=== PATIENT | female | born 1965 | race Caucasian/White ===

== ENCOUNTER 2020-07-24 14:17 | Emergency (ER) | payer OTHER ==
[~2020-07-24] VITALS: Ht 165.1 cm; Wt 145.3 kg
[2020-07-24 14:30] VITALS: BP 147/84
--- NOTE | 2020-07-24 15:02 | RAD ---
EXAM: Chest, single view. HISTORY: Hypertension. COMPARISON: None. FINDINGS: A frontal view of the chest is obtained. There is elevation of the right hemidiaphragm. The re is suspected bilateral infrahilar atelectasis. No consolidation, pleural effusion or pneumothorax is seen. The heart is normal in size for portable technique. IMPRESSION: No acute pulmonary finding. Electronically signed by: Bere Lacey MD (07/24/2020 2:59 PM) [facility]
--- NOTE | 2020-07-24 15:25 | PHYS DOC ---
General Adult EDM: Chief Complaint: HYPERTENSION HPI: HPI: 55 yo F PMH fibromyalgia, cluster headaches, chronic fatigue syndrome and obesity (s/p gastric bypass in 2006), presents to the ED concern for her blood pressure after she checked it 5 times today and each time had a different reading, stating "it's all over the place, I'm freaking out." Lowest blood pressure was 135/75 and highest blood pressure was 199/95. Patient reports she called Charlene Pinto's nurse on Saturday (3 days ago), and she was referred to come to the emergency department for evaluation but she declined due to anxiety over Covid. Patient also with multiple other complaints. States she feels like the "blueberry girl in the [employer] movie,", that she is terribly "bloated everywhere, even my bones," but that this has been a chronic thing for years. Her normal weight is 317 pounds (she's 319 lbs today). Reports she googled her blood pressure medicines and believes her chlorthalidone worsens her bloating. Reports her blood pressure usually runs in the 130s over 70s. States her blood pressure medicines were changed on July 13. States she is not taking chlorthalidone 50 mg, Norvasc 10 mg and lisinopril 40 mg. Before that was on verapamil extended release and hydrochlorothiazide and lisinopril combination. Patient with no history of prior stroke or CAD. Patient with no active chest pain, shortness of breath, confusion or neurologic deficits. Review of Systems: Review of Systems: Constitutional: Denies fever or chills Eyes: Denies change in visual acuity HENT: Denies nasal congestion or sore throat Respiratory: Denies cough or shortness of breath Cardiovascular: Denies chest pain or edema GI: Denies abdominal pain, nausea, vomiting, bloody stools or diarrhea : Denies dysuria. hematuria or anuria Musculoskeletal: Denies back pain or joint pain Integument: Denies rash or crepitus Neurologic: Denies headache, focal weakness or sensory changes Endocrine: Denies polyuria or polydipsia Lymphatic: Denies swollen glands Psychiatric: Denies depression, SI or HI Allergies: Allergies: Allergies Coded Allergies Type Severity Reaction Last Updated Verified levofloxacin Allergy Unknown 07/24/20 Yes morphine Allergy Unknown 07/24/20 Yes Physical Exam: PE: Constitutional: Well developed, well nourished, no acute distress, non-toxic appearance. HENT: Normocephalic, atraumatic, Eyes: EOMI, conjunctiva normal, no discharge. Neck: Normal range of motion, supple, Cardiovascular: S1/2 present, regular rhythm Lungs & Thorax: Speaking in full sentences, bilateral equal chest rise, no tachypnea or increased work of breathing Abdomen: soft, no tenderness, Skin: Warm, dry, no erythema, no rash. [] Back: No tenderness, no CVA tenderness. [] Extremities: No tenderness, no cyanosis, no edema Neurologic: Alert and oriented X 3, normal motor function, normal sensory function, no focal deficits noted. [] Psychologic: Affect normal, very anxious in ed -on verge of tears from fear of stroke EKG: EKG: Sinus tachycardia at 108 bpm, left axis deviation, normal intervals, no T wave inversions, no ST elevations or ST depressions Radiology/Procedures: Radiology/Procedures: IMAGING REPORT Signed PATIENT: ABIMAEL TRACY ACCOUNT: [id number] : 1965 LOCATION: ER AGE: 55 SEX: F EXAM STATUS: REG ER ORD. PHYSICIAN: BETHANY BABB DO REASON: htn PROCEDURE: CHEST AP ONLY EXAM: Chest, single view. HISTORY: Hypertension. COMPARISON: None. FINDINGS: A frontal view of the chest is obtained. There is elevation of the right hemidiaphragm. There is suspected bilateral infrahilar atelectasis. No consolidation, pleural effusion or pneumothorax is seen. The heart is normal in size for portable technique. IMPRESSION: No acute pulmonary finding. Electronically signed by: Bere Garcia MD (07/24/2020 2:59 PM) [facility] DICTATED AND SIGNED BY: BERE GARCIA MD DATE: 07/24/20 1459 CC: HANK PINTO; BETHANY BABB DO ~MTH0 0 Heart Score: Risk Factors: Risk Factors: DM, Current or recent (<one month) smoker, HTN, HLP, family history of CAD, obesity. Risk Scores: Score 0 - 3: 2.5% MACE over next 6 weeks - Discharge Home Score 4 - 6: 20.3% MACE over next 6 weeks - Admit for Clinical Observation Score 7 - 10: 72.7% MACE over next 6 weeks - Early Invasive Strategies Course & Med Decision Making: Course & Med Decision Making Pertinent Labs and Imaging studies reviewed. (See chart for details) Concern for altering BP - pt with asymptomatic HTN. Pt was encouraged to follow- up with her primary care physician in the next 48 hours for blood pressure recheck and medication review-I also encouraged she take her blood pressure cuff to the clinic so that she can be educated on how to take her blood pressure acc urately (due to excessive upper arm skin is checking via forearm). Will discharge home with strict ED return precautions were given for chest pain, dyspnea, confusion or neurologic deficits. Encouraged urgent outpatient follow- up with PMD. Life-threatening processes were considered but are low suspicion at this time, given history, physical exam and ED workup. Pt was educated on all prescription medications and adverse effects. All patient's questions were answered and pt was stable at time of discharge. Life/limb-threatening differential includes but is not limited to, acute myocardial infarction, aortic dissection, congestive heart failure/pulmonary edema, arrhythmia, cardiomyopathy, myocarditis, pericarditis, pneumomediastinum, pneumonia, pneumothorax, CVA, or end organ damage. I spoken with the patient and her caregivers. I explained the patient's condition, diagnoses and treatment plan based on the information available to me at this time. I have answered the patient and her caregiver's questions and addressed any concerns. The patient and her caregivers have a good understanding of patient's diagnosis, condition and treatment plan as can be expected at this point. Vital signs have been stable. Patient's condition is stable and appropriate for discharge from the emergency department. Patient will pursue further outpatient evaluation with primary care physician or other designated or consulting physician as outlined in the discharge instructions. The patient and/or caregivers are agreeable to this plan of care and follow-up instructions have been explained in detail. The patient and/or caregivers have received these instructions in written form and have expressed an understanding of the discharge instructions. The patient and/or caregivers are aware that any significant change of condition or worsening of symptoms should prompt immediate return to this or the closest emergency department or call to 911. Paul Disclaimer: Paul Disclaimer: This electronic medical record was generated, in whole or in part, using a voice recognition dictation system. Departure Departure: Impression: Primary Impression: Hypertension Additional Impression: Anxiety about health Disposition: 01 DC HOME SELF CARE/HOMELESS Condition: STABLE Referrals: HANK PINTO (PCP) within 7 days Patient Instructions: How to Take Your Blood Pressure, [id number], Hypertension, Managing Your High Blood Pressure Additional Instructions: EMERGENCY DEPARTMENT GENERAL DISCHARGE INSTRUCTIONS Thank you for coming to [facility] (ED) today and trusting us with you care. We trust that you had a positivie experience in our Emergency Department. If you wish to speak to the department management, you may call the director at [phone]. YOUR FOLLOW UP INSTRUCTIONS ARE FOLLOWS: 1. Do you have a private Doctor? If you do not have a private doctor, please ask for a resource list of physicians or clinics that may be able to assist you with follow up care. 2. The Emergency Physician has interpreted your x-rays. The X-Ray specialist will also review them. If there is a change in the findings, you will be notified in 48 hours when at all possible. 3. A lab test or culture has been done, your results will be reviewed and you will be notified if you need a change in treatment. ADDITIONAL INSTRUCTIONS AND INFORMATION: 1. Your care today has been supervised by a physician who is specially trained in emergency care. Many problems require more than one evaluation for a complete diagnosis and treatment. We recommend that you schedule your follow up appointment as recommended to ensure complete treatment of you illness or injury. If you are unable to obtain follow up care and continue to have a problem, or if your condition worsens, we recommend that you return to the ED. 2. We are not able to safely determine your condition over the phone nor are we able to give sound medical advice over the phone. For these safety reasons, if you call for medical advice we will ask you to come to the ED for further evaluation. 3. If you have any questions regarding these discharge instructions please call the ED at [phone]. SAFETY INFORMATION: In the interest of safety, wellness, and injury prevention; we encourage you to wear your sealbelt, if you smoke; quite smoking, and we encourage family to use a protective helmet for bicycling and other sporting events that present an increased risk for head injury. IF YOUR SYMPTOMS WORSEN OR NEW SYMPTOMS DEVELOP, OR YOU HAVE CONCERNS ABOUT YOUR CONDITION; OR IF YOUR CONDITION WORSENS WHILE YOU ARE WAITING FOR YOUR FOLLOW UP APPOINTMENT; EITHER CONTACT YOUR PRIMARY CARE DOCTOR, THE PHYSICIAN WHOSE NAME AND NUMBER YOU WERE GIVEN, OR RETURN TO THE ED IMMEDIATELY. BETHANY ESTRADA DO Jul 24, 2020 15:25
[2020-07-24 16:02] LABS: CREATININE 0.9 mg/dL (0.6-1.0); GFR 65.2; POTASSIUM 3.7 mmol/L (3.5-5.1)
[2020-07-24 16:08] LABS: BASO # 0.1 x10^3/uL (0.0-0.2); BASO % 1 % (0-3); EOS # 0.5 x10^3/uL (0.0-0.7); EOS % 4 % (0-3); HEMATOCRIT 43.6 % (36.0-47.0); HEMOGLOBIN 14.9 g/dL (12.0-15.5); LYMPH # 2.8 x10^3/uL (1.0-4.8); LYMPH % 24 % (24-48); MEAN CORPUSCULAR HEMOGLOBIN 34 pg (25-35); MEAN CORPUSCULAR HGB CONC 34 g/dL (31-37); MEAN CORPUSCULAR VOLUME 98 fL (79-100); MONO # 0.9 x10^3/uL (0.0-1.1); MONO % 7 % (0-9); NEUT # 7.7 x10^3uL (1.8-7.7); NEUT % 64 % (31-73); PLATELET COUNT 295 x10^3/uL (140-400); RED BLOOD COUNT 4.45 x10^6/uL (3.50-5.40); RED CELL DISTRIBUTION WIDTH 14.9 % (11.5-14.5); WHITE BLOOD COUNT 11.9 x10^3/uL (4.0-11.0)
[2020-07-24 16:09] LABS: ALBUMIN 3.9 g/dL (3.4-5.0); TOTAL BILIRUBIN 0.2 mg/dL (0.2-1.0); TOTAL PROTEIN 7.7 g/dL (6.4-8.2)
[2020-07-24] MEDS ORDERED: ALPRAZolam 0.25 MG TABLET PO ONE (16:45)
[2020-07-24] MEDS ORDERED: ONDANSETRON ODT 4 MG TAB.RAPDIS PO ONE (16:45)
[2020-07-24] MEDS ORDERED: ONDANSETRON PF 4 MG/2 ML VIAL. IVP ONE (16:45)
--- NOTE | 2020-07-24 17:01 | EKG ---
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
== END 2020-07-24 17:12 | disposition home or self-care (01) ==
LOC: ER 14:17
DX: I10 Essential (primary) hypertension (principal); F41.9 Anxiety disorder, unspecified; M79.7 Fibromyalgia; E66.9 Obesity, unspecified; Z68.43 Body mass index [BMI] 50.0-59.9, adult; Z98.84 Bariatric surgery status; Z88.1 Allergy status to other antibiotic agents; Z88.5 Allergy status to narcotic agent
CPT/HCPCS: 36415; 71045; 80053; 84484; 85025; 93005; 99285; Q0162

== ENCOUNTER → 2020-08-12 | Outpatient (CLI) | payer OTHER ==
[2020-07-24 14:30] VITALS: BP 147/84
[2020-08-12 16:11] LABS: BASO # 0.1 x10^3/uL (0.0-0.2); BASO % 1 % (0-3); EOS # 0.8 x10^3/uL (0.0-0.7); EOS % 6 % (0-3); HEMATOCRIT 44.5 % (36.0-47.0); HEMOGLOBIN 14.8 g/dL (12.0-15.5); LYMPH % 22 % (24-48); MEAN CORPUSCULAR HEMOGLOBIN 33 pg (25-35); MEAN CORPUSCULAR HGB CONC 33 g/dL (31-37); MEAN CORPUSCULAR VOLUME 100 fL (79-100); MONO # 0.8 x10^3/uL (0.0-1.1); MONO % 6 % (0-9); NEUT # 9.1 x10^3uL (1.8-7.7); NEUT % 66 % (31-73); PLATELET COUNT 344 x10^3/uL (140-400); RED BLOOD COUNT 4.47 x10^6/uL (3.50-5.40); RED CELL DISTRIBUTION WIDTH 15.4 % (11.5-14.5); WHITE BLOOD COUNT 13.8 x10^3/uL (4.0-11.0)
[2020-08-12 16:22] LABS: ALBUMIN 3.9 g/dL (3.4-5.0); C REACTIVE PROTEIN 13.4 mg/L (0-3.3); CALCIUM 9.6 mg/dL (8.5-10.1); CREATININE 0.9 mg/dL (0.6-1.0); GFR 65.2; POTASSIUM 3.7 mmol/L (3.5-5.1); TOTAL BILIRUBIN 0.3 mg/dL (0.2-1.0); TOTAL PROTEIN 7.9 g/dL (6.4-8.2)
[2020-08-12 17:08] LABS: % BASOS 1 % (0-3); % EOS 5 % (0-5); % LYMPHS 21 % (24-48); % MONOS 4 % (0-10); % SEGS 69 % (35-66); PLT ESTIMATE ADEQUATE (ADEQUATE)
[2020-08-13 00:09] LABS: C3 COMPLEMENT 169 mg/dL (82-167); C4 COMPLEMENT 32 mg/dL (12-38); HEMOGLOBIN A1C 8.3 % (4.8-5.6); IMMUNOGLOBULIN A 221 mg/dL (87-352); IMMUNOGLOBULIN G 796 mg/dL (586-1602); IMMUNOGLOBULIN M 174 mg/dL (26-217)
[2020-08-14 20:10] LABS: IMMUNOGLUBULIN E 175 IU/mL (6-495)
== END ==
LOC: LAB 15:19
PROVIDERS: ATTEND Family Medicine
DX: A68.9 Relapsing fever, unspecified (principal); R21 Rash and other nonspecific skin eruption; R42 Dizziness and giddiness; M79.10 Myalgia, unspecified site; R52 Pain, unspecified; G44.019 Episodic cluster headache, not intractable; G44.85 Primary stabbing headache
CPT/HCPCS: 36415; 80053; 82784; 82785; 83036; 85007; 85025; 86140; 86160; 86162

== ENCOUNTER → 2020-09-30 | Outpatient (CLI) | payer OTHER ==
--- NOTE | 2020-09-30 14:42 | RAD ---
EXAM: Bilateral diagnostic mammogram; right breast sonogram. HISTORY: 55-year-old female presents with a palpable right breast lump. TECHNIQUE: Full-field digital craniocaudal, exaggerated craniocaudal and mediolateral oblique views o f both breasts are obtained for evaluation. Computer aided detection was applied. Sonographic imaging of the right breast at the site of palpable concern was also performed. COMPARISON: None. BREAST PARENCHYMAL DENSITY: Level A - Mostly fat. FINDINGS: There is no suspicious mass, microcalcification or region of architectural distortion. Ther e are a few benign calcifications. There are prominent superficial veins throughout the bilateral gee asts. Sonographic imaging of the right breast demonstrates a 1.8 cm solid nonvascular circumscribed nodule isoechoic to fat within the subcutaneous 1:00 position 8.5 cm from the nipple. This corresponds with the palpable abnormality of concern and is likely a benign lipoma or fat lobule. No suspicious lesion is seen. IMPRESSION: 1. 1.8 cm benign lipoma or fat lobule within the superficial 1:00 position of the right breast 8.5 cm from the nipple, corresponding with the palpable abnormality of concern. 2. No suspicious mammographic or sonographic finding. 3. BI-RADS Category 2: Benign finding(s). RECOMMENDATION: Annual mammography is recommended. Continued clinical follow-up of palpable abnormali ties is recommended. Repeat imaging can be performed if there is a change physical exam findings or c ontinuing clinical concern. If your mammogram demonstrates that you have dense breast tissue, which could hide abnormalities, and if you have other risk factors for breast cancer that have been identified, you might benefit from s upplemental screening tests that may be suggested by your ordering physician. Dense breast tissue, i n and of itself, is a relatively common condition. This information is not provided to cause undue c oncern, but rather to raise your awareness and to promote discussion with your physician regarding th e presence of other risk factors, in addition to dense breast tissue. A report of your mammography re sults will be sent to you and your physician. You should contact your physician if you have any ques tions or concerns regarding this report. Mammography is a sensitive method for finding small breast cancers, but it does not detect them all a nd is not a substitute for careful clinical examination. A negative mammogram does not negate a clin ically suspicious finding and should not result in delay in biopsying a clinically suspicious abnorma lity. PQRS compliance statement - Patient information was entered into a reminder system with a target due date for the next mammogram. "Our facility is accredited by the [employer] Mammography Program." Electronically signed by: Bere Lacey MD (09/30/2020 2:39 PM) [id number]
== END ==
LOC: MAMMO 13:53
PROVIDERS: ATTEND Family Medicine
DX: R92.2 Inconclusive mammogram (principal)
CPT/HCPCS: 76641; 77066

== ENCOUNTER 2020-12-04 23:11 | Emergency (ER) | payer OTHER ==
[~2020-12-04] VITALS: Ht 165.1 cm; Wt 141.0 kg
[2020-12-04] MEDS ORDERED: CONTRAST GIVEN. MC PRN (23:45)
[2020-12-04] MEDS ORDERED: IOHEXOL 300 MG/ML 75 ML VIAL. IV ONE (23:45)
--- NOTE | 2020-12-05 | EKG ---
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
--- NOTE | 2020-12-05 00:07 | PHYS DOC ---
Past History Past Medical History: Anxiety, Asthma, Diabetes, Hypertension, Hypothyroid Past Surgical History: No Surgical History Alcohol Use: None Adult General Chief Complaint Chief Complaint: ABDOMINAL PAIN HPI HPI Patient is a 55-year-old female with a past medical history of gastric bypass surgery and cholecystectomy who presents with a chief complaint of epigastric and left upper quadrant pain that started approximately 5 hours ago after eating some spicy nachos. States that the pain is about 7 out of 10, sharp in nature radiating from the left upper quadrant to the epigastrium. Denies any nausea, vomiting. Denies any chest pain, shortness of breath, dysuria, hematuria, hematemesis, hematuria or blood in the stool. Review of Systems Review of Systems Review of systems otherwise unremarkable except noted in HPI Current Medications Current Medications Current Medications Medications (Trade) Dose Ordered Sig/Holly Start Time Stop Time Status Last Admin Dose Admin Fentanyl Citrate (Fentanyl 2ml Vial) 75 mcg 1X ONCE 12/04/20 23:30 12/04/20 23:31 DC Info (Do NOT chart on this entry -- for MONITORING) 1 each PRN DAILY PRN 12/04/20 23:45 12/06/20 23:44 Iohexol (Omnipaque 300 Mg/ml) 75 ml 1X ONCE 12/04/20 23:45 12/04/20 23:47 DC Allergies Allergies Allergies Coded Allergies Type Severity Reaction Last Updated Verified levofloxacin Allergy Unknown 07/24/20 Yes morphine Allergy Unknown 07/24/20 Yes Physical Exam Physical Exam Constitutional: Well developed, well nourished, no acute distress, non-toxic appearance. [] HENT: Normocephalic, atraumatic, bilateral external ears normal, oropharynx moist, no oral exudates, nose normal. [] Eyes: conjunctiva normal, no discharge. [] Neck: Normal range of motion, no tenderness, supple, no stridor. [] Cardiovascular:Heart rate regular rhythm, no murmur [] Lungs & Thorax: Bilateral breath sounds clear to auscultation [] Abdomen: Bowel sounds normal, soft, tenderness around the epigastrium in between the epigastrium and left upper quadrant, no rebound or guarding, no masses, no pulsatile masses. [] Skin: Warm, dry, no erythema, no rash. [] Back: No tenderness, Extremities: No tenderness, no cyanosis, no clubbing, ROM intact, no edema. [] Neurologic: Alert and oriented X 3, normal motor function, normal sensory function, no focal deficits noted. [] Psychologic: Affect normal, judgement normal, mood normal. [] EKG EKG Rate of 84, QRS of 96, QTc of 41, no STEMI. Abnormal QT with probable block [] Radiology/Procedures Radiology/Procedures []NDICATION: Reason: LUQ pain / Epigastric pain, OMNI 300, 75ml / Spl. Instructions: / History: . COMPARISON: None. TECHNIQUE: Axial CT images obtained through the abdomen and pelvis with contrast . One or more of the following individualized dose reduction techniques were utilized for this examination: 1. Automated exposure control; 2. Adjustment of the mA and/or kV according to patient size; 3. Use of iterative reconstruction technique. FINDINGS: linear opacities lung bases could be scarring or atelectasis. There is also some mild groundglass opacities. Abdominal aorta is not aneurysmal. There are some scattered calcific atherosclerosis. Liver appears enlarged. Postcholecystectomy changes. No peripancreatic fluid collection. Spleen unremarkable. No hydronephrosis. Minimal urine within bladder. Subcutaneous edema anterior abdominal wall. Indeterminate 12 mm right adrenal nodule. No periappendiceal inflammatory changes. There are some prominent lymph nodes in the upper abdomen. For example michael hepatis region measuring up to about 12 mm short axis. Postoperative changes to the stomach. Stomach is somewhat distended with intraluminal content at time of exam. Degenerative changes spine. Multilevel central canal and neural foraminal stenosis. IMPRESSION: * The stomach is distended with intraluminal content. This could be from recent meal but would correlate with symptoms as well as whether the patient had a recent meal to ensure that this is not from causes such as delayed emptying or partial obstruction. * Enlarged liver. * Nonspecific subcutaneous edema at the anterior abdominal wall. * Degenerative changes the spine with multilevel central canal and neural foraminal stenosis. * Indeterminate right adrenal nodule. If further evaluation is desired nonemergent MRI could BE obtained Electronically signed by: Paulie Huizar MD (12/05/2020 1:02 AM) [id number] Heart Score C/O Chest Pain: No Risk Factors: Risk Factors: DM, Current or recent (<one month) smoker, HTN, HLP, family history of CAD, obesity. Risk Scores: Risk Factors: DM, Current or recent (<one month) smoker, HTN, HLP, family history of CAD, obesity. Course & Med Decision Making Course & Med Decision Making Patient is a 55-year-old female who presents with a chief complaint of epigastric and left upper quadrant pain for 5 hours after eating some not shows Vital signs not concerning. Physical exam noted above. Patient placed on the monitor with IV access established. Started on IV fluid resuscitation. Given pain medication. Patient with no gallbladder. Laboratory analysis not concerning. CT noted above with food in the stomach noted. Patient stated at about 6 PM she did have a pretzel and does have slow digestion so it does not surprise her. Able to take p.o. fluids in the emergency department without issue. Discussed all findings with patient and discussed admission for observation and fluids versus home. Patient stated she was feeling better, and feels safe to discharge home. Requested a work note for the next couple of days to allow contact with her primary care physician here at [facility]. Gave strict return precautions to the ED. Family grateful, verbalized understanding and agreed with plan of discharge. [] Dragon Disclaimer Dragon Disclaimer This electronic medical record was generated, in whole or in part, using a voice recognition dictation system. Departure Departure: Impression: Primary Impression: Abdominal pain Disposition: HOME / SELF CARE / HOMELESS Condition: GOOD Referrals: TEE PHAN MD (PCP) Patient Instructions: Abdominal Pain (Nonspecific) Additional Instructions: Please read all of the attached information very carefully. As discussed, please change up your diet over the next few days, and eat nothing heavy just light clear foods and liquids. Please call your primary care physician later today to discuss your ED visit and set up a follow-up as soon as possible as discussed. You were given a work note over the next few days to allow contact and follow-up with your primary care. As discussed, please come back to the emergency department immediately with new or concerning symptoms as discussed. DOMINIC YU MD December 05, 2020 00:07
[2020-12-05 00:17] LABS: CALCIUM 9.6 mg/dL (8.5-10.1); CREATININE 1.1 mg/dL (0.6-1.0); GFR 51.8; POTASSIUM 4.1 mmol/L (3.5-5.1)
[2020-12-05 00:22] LABS: ALBUMIN/GLOBULIN RATIO 1.1 (1.0-1.7); TOTAL BILIRUBIN 0.4 mg/dL (0.2-1.0); TOTAL PROTEIN 7.8 g/dL (6.4-8.2)
[2020-12-05 00:24] LABS: BASO # 0.1 x10^3/uL (0.0-0.2); BASO % 1 % (0-3); EOS # 0.5 x10^3/uL (0.0-0.7); EOS % 4 % (0-3); HEMATOCRIT 45.9 % (36.0-47.0); HEMOGLOBIN 15.6 g/dL (12.0-15.5); LYMPH # 3.2 x10^3/uL (1.0-4.8); LYMPH % 24 % (24-48); MEAN CORPUSCULAR HEMOGLOBIN 34 pg (25-35); MEAN CORPUSCULAR HGB CONC 34 g/dL (31-37); MEAN CORPUSCULAR VOLUME 99 fL (79-100); MONO # 0.8 x10^3/uL (0.0-1.1); MONO % 6 % (0-9); NEUT # 8.6 x10^3uL (1.8-7.7); NEUT % 65 % (31-73); PLATELET COUNT 284 x10^3/uL (140-400); RED BLOOD COUNT 4.63 x10^6/uL (3.50-5.40); RED CELL DISTRIBUTION WIDTH 14.5 % (11.5-14.5); WHITE BLOOD COUNT 13.2 x10^3/uL (4.0-11.0)
[2020-12-05 00:36] LABS: BACTERIA,URINE 0 /HPF (0-FEW); BILIRUBIN,URINE SMALL (NEG); CLARITY,URINE CLEAR; COLOR,URINE YELLOW; GLUCOSE,URINE NEG (NEG); NITRITE,URINE NEG (NEG); RBC,URINE 0 /HPF (0-2); SQUAMOUS EPITHELIAL CELL,UR FEW /LPF; WBC,URINE 0 /HPF (0-4)
[2020-12-05 00:40] LABS: U PREG PATIENT NEGATIVE (NEG)
--- NOTE | 2020-12-05 01:04 | RAD ---
INDICATION: Reason: LUQ pain / Epigastric pain, OMNI 300, 75ml / Spl. Instructions: / History: . COMPARISON: None. TECHNIQUE: Axial CT images obtained through the abdomen and pelvis with contrast . One or more of the following individualized dose reduction techniques were utilized for this examinat ion: 1. Automated exposure control; 2. Adjustment of the mA and/or kV according to patient size; 3 . Use of iterative reconstruction technique. FINDINGS: linear opacities lung bases could be scarring or atelectasis. There is also some mild groundglass opa cities. Abdominal aorta is not aneurysmal. There are some scattered calcific atherosclerosis. Liver appears enlarged. Postcholecystectomy changes. No peripancreatic fluid collection. Spleen unremarkable. No hydronephrosis. Minimal urine within bladder. Subcutaneous edema anterior abdominal wall. Indeterminate 12 mm right adrenal nodule. No periappendiceal inflammatory changes. There are some prominent lymph nodes in the upper abdomen. For example michael hepatis region measuring up to about 12 mm short axis. Postoperative changes to the stomach. Stomach is somewhat distended with intraluminal content at time of exam. Degenerative changes spine. Multilevel central canal and neural foraminal stenosis. IMPRESSION: * The stomach is distended with intraluminal content. This could be from recent meal but would corre late with symptoms as well as whether the patient had a recent meal to ensure that this is not from c auses such as delayed emptying or partial obstruction. * Enlarged liver. * Nonspecific subcutaneous edema at the anterior abdominal wall. * Degenerative changes the spine with multilevel central canal and neural foraminal stenosis. * Indeterminate right adrenal nodule. If further evaluation is desired nonemergent MRI could BE obta ined Electronically signed by: Paulie Huizar MD (12/05/2020 1:02 AM) [id number]
[2020-12-05 02:30] VITALS: BP 140/90
== END 2020-12-05 02:30 | disposition home or self-care (01) ==
LOC: ER 23:11
DX: R10.12 Left upper quadrant pain (principal); R10.13 Epigastric pain; J45.909 Unspecified asthma, uncomplicated; I10 Essential (primary) hypertension; Z88.1 Allergy status to other antibiotic agents; Z88.6 Allergy status to analgesic agent
CPT/HCPCS: 36415; 74177; 80053; 81001; 81025; 83690; 85025; 93005; 96374; 99285; J3010; Q9967

== ENCOUNTER 2021-07-10 11:37 | Emergency (ER) | payer OTHER ==
[~2021-07-10] VITALS: Ht 165.1 cm; Wt 131.8 kg
[2021-07-10 12:08] VITALS: BP 143/74
--- NOTE | 2021-07-10 12:23 | PHYS DOC ---
Past History Past Medical History: Anxiety, Asthma, Diabetes, Hypertension, Hypothyroid Past Surgical History: No Surgical History Alcohol Use: Occasionally General Adult EDM: Chief Complaint: FOREIGNBODY EAR HPI: HPI: 56-year-old female presents with foreign body in her left ear. Patient uses hearing aids and she believes that one of her cups is stuck in her left ear. She attempted to get out at home but it got pushed into deeper. She thinks it may be laying in the eardrum so she came in for evaluation. She has no other complaints this time. Review of Systems: Review of Systems: Constitutional: Denies fever or chills Eyes: Denies change in visual acuity HENT: Foreign body left ear Respiratory: Denies cough or shortness of breath Cardiovascular: Denies chest pain or edema GI: Denies abdominal pain, nausea, vomiting, bloody stools or diarrhea : Denies dysuria Musculoskeletal: Denies back pain or joint pain Integument: Denies rash Neurologic: Denies headache, focal weakness or sensory changes Endocrine: Denies polyuria or polydipsia Lymphatic: Denies swollen glands Psychiatric: Denies depression or anxiety Allergies: Allergies: Allergies Coded Allergies Type Severity Reaction Last Updated Verified levofloxacin Allergy Unknown 07/24/20 Yes morphine Allergy Unknown 07/24/20 Yes Physical Exam: PE: Constitutional: Well developed, well nourished, no acute distress, non-toxic appearance. [] HENT: Normocephalic, atraumatic, bilateral external ears normal, oropharynx moist, no oral exudates, nose normal. Right tympanic membrane normal. Left ear canal with silicone foreign body. [] Eyes: PERRLA, EOMI, conjunctiva normal, no discharge. [] Neck: Normal range of motion, no tenderness, supple, no stridor. [] Cardiovascular: Heart rate regular rhythm, no murmur [] Lungs & Thorax: Bilateral breath sounds clear to auscultation [] Abdomen: Bowel sounds normal, soft, no tenderness, no masses, no pulsatile masses. [] Skin: Warm, dry, no erythema, no rash. [] Back: No tenderness, no CVA tenderness. [] Extremities: No tenderness, no cyanosis, no clubbing, ROM intact, no edema. [] Neurologic: Alert and oriented X 3, normal motor function, normal sensory function, no focal deficits noted. [] Psychologic: Affect normal, judgement normal, mood normal. [] Current Patient Data: Vital Signs: Vital Signs Date Time Temp Pulse Resp B/P (MAP) Pulse Ox O2 Delivery O2 Flow Rate FiO2 07/10/21 12:08 98.9 97 20 143/74 (97) 97 Room Air EKG: EKG: [] Radiology/Procedures: Radiology/Procedures: [] Heart Score: C/O Chest Pain: N/A Risk Factors: Risk Factors: DM, Current or recent (<one month) smoker, HTN, HLP, family history of CAD, obesity. Risk Scores: Score 0 - 3: 2.5% MACE over next 6 weeks - Discharge Home Score 4 - 6: 20.3% MACE over next 6 weeks - Admit for Clinical Observation Score 7 - 10: 72.7% MACE over next 6 weeks - Early Invasive Strategies Course & Med Decision Making: Course & Med Decision Making Pertinent Labs and Imaging studies reviewed. (See chart for details) The patient did have a foreign body in the left ear canal. I was able to remove it with many alligator forceps. The foreign body was completely removed. The patient has some retained cerumen deep. I recommended the patient buy an [id number] earwax irrigation kit to help loosen this up and remove it. If this does not work she should follow-up with ENT for professional removal. She is stable for discharge at this time. [] Paul Disclaimer: Paul Disclaimer: This electronic medical record was generated, in whole or in part, using a voice recognition dictation system. Departure Departure: Impression: Primary Impression: Foreign body in left ear, initial encounter Disposition: HOME / SELF CARE / HOMELESS Condition: IMPROVED Referrals: HANK PHAN (PCP) Patient Instructions: Ear Foreign Body, [id number] ONEAL CHEN DO Jul 10, 2021 12:23
== END 2021-07-10 12:32 | disposition home or self-care (01) ==
LOC: ER 11:37
DX: T16.2XXA Foreign body in left ear, initial encounter (principal); F41.9 Anxiety disorder, unspecified; J45.909 Unspecified asthma, uncomplicated; E11.9 Type 2 diabetes mellitus without complications; I10 Essential (primary) hypertension; E03.9 Hypothyroidism, unspecified; Z88.1 Allergy status to other antibiotic agents; Z88.5 Allergy status to narcotic agent; X58.XXXA Exposure to other specified factors, initial encounter; Y93.89 Activity, other specified; Y92.89 Other specified places as the place of occurrence of the external cause; Y99.8 Other external cause status
CPT/HCPCS: 69200; 99284